=== PATIENT | female | born 1945 | race Caucasian/White ===

== ENCOUNTER 2016-11-13 19:17 | Emergency (ER) | payer OTHER ==
[2016-11-13] MEDS ORDERED: NS 1,000 ML IV ONE (19:25)
--- NOTE | 2016-11-13 19:28 | EDPHY ---
H & P HPI/ROS: HPI CHIEF COMPLAINT: Hypoglycemia HISTORY OF PRESENT ILLNESS: this patient very pleasant 71-year-old female, significant past medical history for insulin-dependent diabetes, she takes 15 units of Lantus in the morning 7 units of Lantus at night and sliding scale during the day. She has neuropathy, hypertension, she presents emergency room after her neighbors heard a loud commotion in her trailer. The make contact with her she seemed confused they called 911. EMS arrived and checked her blood sugar was 34. They gave her D50 and her mental status improved. Upon arrival here in emergency room she is alert or x4, GCS 15 and no complaints. She states that she may of not had enough caloric intake today. She was waiting for her significant other to get home to eat dinner and her blood sugar dropped. Past Medical History: Insulin-dependent diabetes, diabetic neuropathy, hypertension Past Surgical History: no recent surgery Social History: denies any use of drugs alcohol tobacco Family History: noncontributory ROS REVIEW OF SYSTEMS: A comprehensive 10 point review of systems is otherwise negative aside from elements mentioned in the history of present illness. Exam Constitutional appears well nontoxic, GCS 15 triage nursing summary reviewed, vital signs reviewed, awake/alert. Eyes normal conjunctivae and sclera, EOMI, PERRLA. HENT normal inspection, atraumatic, moist mucus membranes, no epistaxis, neck supple/ no meningismus, no raccoon eyes. Respiratory clear to auscultation bilaterally, normal breath sounds, no respiratory distress, no wheezing. Cardiovascular rate normal, regular rhythm, no murmur, no edema, distal pulses normal. Gastrointestinal soft, non-tender, no rebound, no guarding, normal bowel sounds, no distension, no pulsatile mass. Genitourinary no CVA tenderness. Musculoskeletal no midline vertebral tenderness, full range of motion, no calf swelling, no tenderness of extremities, no meningismus, good pulses, neurovascularly intact. Skin pink, warm, & dry, no rash, skin atraumatic. Neurologic awake, alert and oriented x 3, AAOx3, moves all 4 extremities equally, motor intact, sensory intact, CN II-XII intact, normal cerebellar, normal vision, normal speech. Psychiatric normal mood/affect. Heme/Lymph/Immune no lymphadenopathy. Differential Diagnosis: includes but is not limited to in a particular order, electrolyte disturbance, dehydration, insulin overdose, hypoglycemia from taking insulin and not enough caloric intake, infection Medical Decision Making: plan for this patient IV establishment, blood draw, check blood sugar, Q hour blood sugar checks, allow the patient to eat, IV fluid bolus. Closely monitor blood sugar. If she has steady state blood sugars over the next few hours are allow her to go home. No signs of sepsis on exam no signs of fever. Re-evaluation: 2020: Re-evaluation at this time this patient would like to be discharged she tells me she feels fine. She has had serial blood sugars here that it remained stable. Infected went up to 230s. No evidence of infection. This is most likely adverse effect of insulin. She is requesting discharge. She did eat here. Has no complaints. It is noted she is slightly low-sodium. She understands follow-up with primary care doctor about this hyponatremia. Return emergency room if there is any worsening symptoms questions or concerns. Source: Patient - Medical/Surgical History Hx Asthma: No Hx Chronic Respiratory Disease: No Hx Diabetes: Yes Hx Cardiac Disease: Yes Hx Renal Disease: No Hx Cirrhosis: No Hx Alcoholism: No Hx HIV/AIDS: No Hx Splenectomy or Spleen Trauma: No Other PMH: HTN, DM, Cataracts, environmental allergies - Social History Smoking Status: Unknown if ever smoked Constitutional: Initial Vital Signs Temperature (C) 36.4 C 11/13/16 19:32 Heart Rate 78 11/13/16 19:32 Respiratory Rate 18 11/13/16 19:32 Blood Pressure 174/87 H 11/13/16 19:32 O2 Sat (%) 97 11/13/16 19:32 O2 Delivery Mode Room Air Allergies/Adverse Reactions: IV kidney dye Allergy (Uncoded 10/11/13 13:47) NSAIDS Adverse Reaction (Uncoded 11/15/10 11:17) ORAL PAIN MEDICATIONS Adverse Reaction (Uncoded 11/15/10 11:16) Home Medications: Medication Instructions Recorded Aspirin [Aspirin 81mg (*)] 81 mg PO DAILY 10/11/13 Citalopram [CeleXA 20 MG] 20 mg PO DAILY 10/11/13 Insulin Regular, Human [HUMULIN R] 0 unit IJ AD 10/11/13 Levothyroxine [Synthroid 100 mcg 100 mcg PO DAILY06 10/11/13 (*)] Lisinopril [Zestril 40 mg (*)] 40 mg PO DAILY 10/11/13 Losartan Potassium [Cozaar] 100 mg PO DAILY 10/11/13 Simvastatin [Zocor] 5 mg PO DAILY 10/11/13 buPROPion XL [Wellbutrin 150mg XL] 150 mg PO DAILY 10/11/13 hydrALAZINE [Apresoline 10 mg (*)] 40 mg PO TID 10/11/13 medroxyPROGESTERone [Provera 2.5 2.5 mg PO DAILY 10/11/13 mg (*)] Cefpodoxime Proxetil [Vantin] 200 mg PO BID #10 tab 10/15/13 Insulin Glargine [Lantus 100 10 units SC HS #0 ml 10/15/13 UNITS/ML (*)] Insulin Glargine [Lantus 100 12 units SC DAILY #0 ml 10/15/13 UNITS/ML (*)] Medical Decision Making - Data Points Laboratory Results: Laboratory Results 11/13/16 19:22 11/13/16 19:40 11/13/16 11/13/16 11/13/16 20:07 19:40 19:22 WBC RBC Hgb Hct MCV MCH MCHC RDW Plt Count MPV Neut % (Auto) Lymph % (Auto) [place] % (Auto) Eos % (Auto) Baso % (Auto) Nucleat RBC Rel Count Absolute Neuts (auto) Absolute Lymphs (auto) Absolute Monos (auto) Absolute Eos (auto) Absolute Basos (auto) Absolute Nucleated RBC Immature Gran % Immature Gran # Sodium 131 mEq/L L mEq/L 130 mEq/L L mEq/L (134-144) (134-144) Potassium 3.6 mEq/L mEq/L 3.8 mEq/L mEq/L (3.5-5.2) (3.5-5.2) Chloride 96 mEq/L L mEq/L 95 mEq/L L mEq/L (97-110) (97-110) Carbon Dioxide 23 mEq/l mEq/l 21 mEq/l L mEq/l (22-31) (22-31) Anion Gap 12 mEq/L mEq/L 14 mEq/L mEq/L (8-16) (8-16) BUN 12 mg/dL mg/dL 13 mg/dL mg/dL (7-23) (7-23) Creatinine 0.9 mg/dL mg/dL 0.9 mg/dL mg/dL (0.6-1.0) (0.6-1.0) Estimated GFR > 60 > 60 Glucose 101 mg/dL H D mg/dL 41 mg/dL L mg/dL (70-100) (70-100) POC Glucose 236 mg/dL H mg/dL (70-100) Calcium 9.1 mg/dL mg/dL 9.4 mg/dL mg/dL (8.5-10.4) (8.5-10.4) 11/13/16 19:22 WBC 6.00 10^3/uL 10^3/uL (3.80-9.50) RBC 4.28 10^6/uL 10^6/uL (4.18-5.33) Hgb 13.2 g/dL g/dL (12.6-16.3) Hct 38.4 % % (38.0-47.0) MCV 89.7 fL fL (81.5-99.8) MCH 30.8 pg pg (27.9-34.1) MCHC 34.4 g/dL g/dL (32.4-36.7) RDW 13.1 % % (11.5-15.2) Plt Count 266 10^3/uL 10^3/uL (150-400) MPV 8.8 fL fL (8.7-11.7) Neut % (Auto) 79.7 % H % (39.3-74.2) Lymph % (Auto) 13.3 % L % (15.0-45.0) [place] % (Auto) 4.5 % % (4.5-13.0) Eos % (Auto) 1.5 % % (0.6-7.6) Baso % (Auto) 0.7 % % (0.3-1.7) Nucleat RBC Rel Count 0.0 % % (0.0-0.2) Absolute Neuts (auto) 4.78 10^3/uL 10^3/uL (1.70-6.50) Absolute Lymphs (auto) 0.80 10^3/uL L 10^3/uL (1.00-3.00) Absolute Monos (auto) 0.27 10^3/uL L 10^3/uL (0.30-0.80) Absolute Eos (auto) 0.09 10^3/uL 10^3/uL (0.03-0.40) Absolute Basos (auto) 0.04 10^3/uL 10^3/uL (0.02-0.10) Absolute Nucleated RBC 0.00 10^3/uL 10^3/uL (0-0.01) Immature Gran % 0.3 % % (0.0-1.1) Immature Gran # 0.02 10^3/uL 10^3/uL (0.00-0.10) Sodium Potassium Chloride Carbon Dioxide Anion Gap BUN Creatinine Estimated GFR Glucose POC Glucose Calcium Medications Given: Discontinued Medications Sodium Chloride (Ns) 1,000 mls @ 0 mls/hr IV EDNOW ONE; Wide Open PRN Reason: Protocol Stop: 11/13/16 19:26 Last Admin: 11/13/16 19:38 Dose: 1,000 mls Point of Care Test Results: 11/13/16 20:07 POC Glucose 236 H Departure - Departure Disposition: Home, Routine, Self-Care Clinical Impression: Hypoglycemia, Hyponatremia Condition: Good Instructions: Hypoglycemia in a Person with Diabetes (ED), Hyponatremia (ED) Additional Instructions: 1. Your sodium is slightly low here in the emergency room. 130s. 2. Please follow up with her primary care doctor to have her sodium recheck. 3. Return emergency room if you have any worsening symptoms questions or concerns. Referrals: Patient,NotPresent [Primary Care Provider] - As per Instructions
[2016-11-13 19:30] LABS: % IMMATURE GRANULYOCYTES 0.3 % (0.0-1.1); ABSOLUTE IMMATURE GRANULOCYTES 0.02 10^3/uL (0.00-0.10); ADD DIFF? NO; ADD MORPH? NO; ADD SCAN? NO; ATYPICAL LYMPHOCYTE FLAG 20 (0-99); FRAGMENT RBC FLAG 0 (0-99); HEMATOCRIT 38.4 % (38.0-47.0); HEMOGLOBIN 13.2 g/dL (12.6-16.3); LEFT SHIFT FLG 0 (0-99); LIPEMIA HEMOLYSIS FLAG 90 (0-99); MEAN CELL HEMOGLOBIN 30.8 pg (27.9-34.1); MEAN CELL HEMOGLOBIN CONCENTR. 34.4 g/dL (32.4-36.7); MEAN CELL VOLUME 89.7 fL (81.5-99.8); MEAN PLATELET VOLUME 8.8 fL (8.7-11.7); PLATELET CLUMPS FLAG 0 (0-99); PLATELET COUNT 266 10^3/uL (150-400); RED BLOOD CELL COUNT 4.28 10^6/uL (4.18-5.33); RED CELL DISTRIBUTION WIDTH 13.1 % (11.5-15.2)
[2016-11-13 19:35] VITALS: RESP 18; TEMP 97.5; O2SAT 97
[2016-11-13 19:43] LABS: ANION GAP 14 mEq/L (8-16); CALCIUM 9.4 mg/dL (8.5-10.4); CARBON DIOXIDE 21 mEq/l (22-31); CHLORIDE 95 mEq/L (97-110); CREATININE 0.9 mg/dL (0.6-1.0); GLOMERULAR FILTRATION RATE > 60; GLUCOSE 41 mg/dL (70-100); POTASSIUM 3.8 mEq/L (3.5-5.2); SODIUM 130 mEq/L (134-144)
[2016-11-13 20:02] LABS: ANION GAP 12 mEq/L (8-16); CALCIUM 9.1 mg/dL (8.5-10.4); CARBON DIOXIDE 23 mEq/l (22-31); CHLORIDE 96 mEq/L (97-110); CREATININE 0.9 mg/dL (0.6-1.0); GLOMERULAR FILTRATION RATE > 60; GLUCOSE 101 mg/dL (70-100); POTASSIUM 3.6 mEq/L (3.5-5.2); SODIUM 131 mEq/L (134-144)
[2016-11-13 20:34] VITALS: BP 169/85; PULSE 80
== END 2016-11-13 20:34 | disposition home or self-care (01) ==
LOC: EDUNIT#
DX: E11.649 Type 2 diabetes mellitus with hypoglycemia without coma (principal); E87.1 Hypo-osmolality and hyponatremia; I10 Essential (primary) hypertension; E86.9 Volume depletion, unspecified; Z79.4 Long term (current) use of insulin; Z79.82 Long term (current) use of aspirin

== ENCOUNTER 2018-07-02 13:55 | Inpatient (IN) | payer OTHER ==
[2018-07-02] MEDS ORDERED: CALCIUM CHLORIDE 1 GM/10 ML INJ ONE (14:07)
[2018-07-02] MEDS ORDERED: NS 1,000 ML IV ONE ×3 (14:07→16:56)
[2018-07-02] MEDS ORDERED: CALCIUM GLUC 10% 1 GM/10 ML VIAL ONE (14:07)
[2018-07-02] MEDS ORDERED: ALBUTEROL 3 ML DEYVIAL IH ONE (14:08)
[2018-07-02] MEDS ORDERED: SODIUM BICARBONATE 150 MEQ in D5W 1,000 ML IV ONE (14:08)
[2018-07-02] MEDS ORDERED: CALCIUM GLUC 10% 1 GM/10 ML VIAL IVP ONE (14:08)
[2018-07-02] MEDS ORDERED: INSULIN REGULAR HUMAN 100 UNIT, COSIGN. REQUIRED 1 EA in NS 100 ML IV ONE (14:09)
[2018-07-02] MEDS ORDERED: ALBUTEROL INH PREPACK MDI TAKEHOME ONE (14:16)
[2018-07-02 14:17] LABS: PLATELET COUNT 247 10^3/uL (150-400)
[2018-07-02] MEDS ORDERED: ALBUTEROL 60 PUFFS/8 GM MDI IH ONE (14:20)
--- NOTE | 2018-07-02 14:20 | EDPHY ---
H & P Time Seen by Provider: 07/02/18 14:07 HPI/ROS: CHIEF COMPLAINT: Unresponsive Limitations: Unresponsiveness, patient unable to give any clinical history and no family or friends present. History is through EMS. HISTORY OF PRESENT ILLNESS: 72-year-old female with IDDM presents with unresponsiveness. Last evening, a friend called the patient and she was apparently confused. He called her again and there was no answered, so he called 911. On EMS arrival, she was unresponsive. No signs of trauma. Unable to obtain a blood sugar, so 1 amp D50 given. She remained unresponsive after D50. REVIEW OF SYSTEMS: Unable to determine - Medical/Surgical History Hx Asthma: No Hx Chronic Respiratory Disease: No Hx Diabetes: Yes Hx Cardiac Disease: Yes Hx Renal Disease: No Hx Cirrhosis: No Hx Alcoholism: No Hx HIV/AIDS: No Hx Splenectomy or Spleen Trauma: No Other PMH: HTN, DM, Cataracts, environmental allergies - Social History Smoking Status: Unknown if ever smoked Additional Social History: Lives alone in own home - Physical Exam Exam: General Appearance: Unresponsive to painful stimuli, pale Eyes: Pupils equal and round, 3 mm, no response to light ENT, Mouth: Mucous membranes dry, no gag reflex Neck: Normal inspection Respiratory: Lungs are clear to auscultation anteriorly Cardiovascular: Regular rate and rhythm Gastrointestinal: Abdomen is soft Neurological: Flaccid, unresponsive to painful stimuli Skin: Warm and dry, pale Extremities: Normal inspection Psychiatric: Unable to determine Constitutional: Initial Vital Signs Heart Rate 64 07/02/18 14:05 Respiratory Rate 27 H 07/02/18 14:05 Blood Pressure 73/37 L 07/02/18 14:05 O2 Sat (%) 95 07/02/18 14:05 O2 Delivery Mode Non-Rebreather Mask O2 (L/minute) 15 Allergies/Adverse Reactions: IV kidney dye Allergy (Uncoded 10/11/13 13:47) NSAIDS Adverse Reaction (Uncoded 11/15/10 11:17) ORAL PAIN MEDICATIONS Adverse Reaction (Uncoded 11/15/10 11:16) Home Medications: Medication Instructions Recorded Insulin Regular, Human [HUMULIN R] 0 - 15 unit SC AD 10/11/13 Levothyroxine [Synthroid 100 mcg 100 mcg PO DAILY 10/11/13 (*)] Losartan Potassium [Cozaar] 100 mg PO DAILY 06/18/14 buPROPion XL [Wellbutrin 150mg XL] 150 mg PO DAILY 10/11/13 hydrALAZINE [Apresoline 10 mg (*)] 30 mg PO TID 10/11/13 Atorvastatin Calcium [Lipitor 10 10 mg PO DAILY 07/02/18 mg (*)] Insulin Glargine [Lantus 100 0 - 25 units SC DAILY 07/02/18 UNITS/ML] amLODIPine BESYLATE [Norvasc 5 mg 5 mg PO DAILY 07/02/18 (*)] Medical Decision Making - Diagnostics EKG Interpretation: EKG interpreted by me reveals junctional rhythm, rate 64, right bundle branch block, peak T-waves. Imaging Results: Imaging Impressions Chest X-Ray 07/02/18 14:03 Impression: 1. Good position of ET tube 2. Right basilar consolidation. Head CT 07/02/18 14:10 Impression: 1. No acute intracranial hemorrhage. 2. Moderate chronic microvascular ischemic disease and age-related atrophy. With high clinical concern for acute ischemia, MRI of the brain is recommended. Cheryl Rodriguez was notified of these findings by telephone at 6:59 PM on 07/02/2018. Imaging: Discussed imaging studies w/ call specialist Radiologist Procedures: Procedure: RSI Intubation Indication for the procedure was respiratory failure. The patient was preoxygenated with 100% oxygen by face mask. No sedation required. The patient was orally endotracheally intubated under direct glidescope visualization with a 7.5 ETT. Tracheal intubation was confirmed with misting on the tube; equal breath sounds bilaterally immediately after intubation; appropriate color change with [place] CO2 detector; and appropriate capnography waveform. Oxygen saturation after intubation is 96% . Chest X- ray shows ETT in good position. The procedure was performed by myself. Procedure: Central line placement. Indication: DKA, respiratory failure. Risks, benefits, alternatives discussed with the patient including but not limited to bleeding, infection, vascular injury, and collapsed lung and consent obtained. A timeout was observed. Full maximal sterile barrier technique was used including cap, gown, sterile gloves, large sheet, hand washing and chlorhexidine prep. The area was anesthetized with 1% lidocaine. A 7 [place] triple lumen was placed in the right, left subclavian vein using standard Seldinger technique. There were no complications. Blood return low pressure, dark blood. Patient tolerated procedure well. CXR results: Appropriate line placement, and no pneumothorax. X-ray was interpreted by myself. Radiologist interpretation is pending. The procedure was performed by myself. ED Course/Re-evaluation: This patient presents with unresponsiveness and hypotension. 2 IVs were established on arrival. Blood sugar was greater than 600. She was orally intubated by me without complications. Chest x-ray after intubation reveals that the ET tube is a little high and it was lower by RT. EKG reveals a junctional rhythm and peaked T-waves. I-STAT reveals hyperkalemia and hyperglycemia. Calcium gluconate 1 amp IV given, followed by a bicarb and insulin drip for acute hyperkalemia and DKA. IV fluids 2 L infusing wide open. Albuterol given by via the ET tube. 1430: BP 82/38, IV fluid infusing. The hospitalist service was consulted for admission. 1515: Consulted Dr. Chance for hyperkalemia and acute renal failure. Will see the patient in the ED. Central line placement by me for ongoing fluid and medication management. Serial i-STAT's reveal gradual reduction in potassium to 6.6, glucose remains quite elevated. I spent a total of 50 minutes of critical care time in obtaining history, performing a physical exam, bedside monitoring of interventions, collecting and interpreting tests and discussion with consultants but not including time spent performing procedures. Differential Diagnosis: Altered mental status including but not limited to hypoglycemia, infectious process, electrolyte abnormality, head injury, CVA, and intoxicants. - Data Points Laboratory Results: Laboratory Results 07/02/18 14:07 07/02/18 14:07 07/02/18 07/02/18 07/02/18 14:07 14:07 14:05 WBC 13.19 10^3/uL H 10^3/uL (3.80-9.50) RBC 3.29 10^6/uL L 10^6/uL (4.18-5.33) Hgb 10.2 g/dL L g/dL (12.6-16.3) POC Hgb 12.2 gm/dL L gm/dL (12.6-16.3) Hct 37.2 % L % (38.0-47.0) POC Hct 36 % L % (38-47) MCV 113.1 fL H fL (81.5-99.8) MCH 31.0 pg pg (27.9-34.1) MCHC 27.4 g/dL L g/dL (32.4-36.7) RDW 15.7 % H % (11.5-15.2) Plt Count 247 10^3/uL 10^3/uL (150-400) MPV 9.9 fL fL (8.7-11.7) Neut % (Auto) 80.2 % H % (39.3-74.2) Lymph % (Auto) 12.7 % L % (15.0-45.0) [place] % (Auto) 4.9 % % (4.5-13.0) Eos % (Auto) 0.1 % L % (0.6-7.6) Baso % (Auto) 0.2 % L % (0.3-1.7) Nucleat RBC Rel Count 0.0 % % (0.0-0.2) Absolute Neuts (auto) 10.59 10^3/uL H 10^3/uL (1.70-6.50) Absolute Lymphs (auto) 1.67 10^3/uL 10^3/uL (1.00-3.00) Absolute Monos (auto) 0.64 10^3/uL 10^3/uL (0.30-0.80) Absolute Eos (auto) 0.01 10^3/uL L 10^3/uL (0.03-0.40) Absolute Basos (auto) 0.03 10^3/uL 10^3/uL (0.02-0.10) Absolute Nucleated RBC 0.00 10^3/uL 10^3/uL (0-0.01) Immature Gran % 1.9 % H % (0.0-1.1) Immature Gran # 0.25 10^3/uL H 10^3/uL (0.00-0.10) Platelet Estimate ADEQUATE (ADEQ) Oval Macrocytes 1+ H Echinocytes 1+ H Acanthocytes (Spur) 1+ H POC Sodium 122 mEq/L L mEq/L (135-145) Sodium 123 mEq/L L mEq/L (135-145) POC Potassium 8.0 mEq/L H* mEq/L (3.3-5.0) Potassium 8.6 mEq/L H* mEq/L (3.5-5.2) POC Chloride 94 mEq/L L mEq/L (97-110) Chloride 89 mEq/L L mEq/L (97-110) Carbon Dioxide 5 mEq/l L* mEq/l (22-31) POC Total CO2 8 mEq/L L* mEq/L (22-31) Anion Gap 29 mEq/L H mEq/L (6-14) POC BUN 50 mg/dL H mg/dL (7-23) BUN 49 mg/dL H mg/dL (7-23) Creatinine 4.1 mg/dL H mg/dL (0.6-1.0) POC Creatinine 4.1 mg/dL H mg/dL (0.6-1.0) Estimated GFR 11 Glucose 1350 mg/dL H* mg/dL (70-100) POC Glucose > 700 mg/dL H* mg/dL (70-100) Calcium 8.3 mg/dL L mg/dL (8.5-10.4) Phosphorus 12.6 mg/dL H mg/dL (2.5-4.5) Magnesium 2.7 mg/dL H mg/dL (1.6-2.3) Total Bilirubin 0.7 mg/dL mg/dL (0.1-1.4) Conjugated Bilirubin 0.7 mg/dL H mg/dL (0.0-0.5) Unconjugated Bilirubin 0.0 mg/dL mg/dL (0.0-1.1) AST 55 IU/L H IU/L (14-46) ALT 51 IU/L IU/L (9-52) Alkaline Phosphatase 87 IU/L IU/L (38-126) Total Protein 5.6 g/dL L g/dL (6.3-8.2) Albumin 3.5 g/dL g/dL (3.5-5.0) Beta-Hydroxybutyrate 11.00 mmol/L H mmol/L (0.02-0.27) Specimen Hemolysis 105 07/02/18 14:00 WBC RBC Hgb POC Hgb Hct POC Hct MCV MCH MCHC RDW Plt Count MPV Neut % (Auto) Lymph % (Auto) [place] % (Auto) Eos % (Auto) Baso % (Auto) Nucleat RBC Rel Count Absolute Neuts (auto) Absolute Lymphs (auto) Absolute Monos (auto) Absolute Eos (auto) Absolute Basos (auto) Absolute Nucleated RBC Immature Gran % Immature Gran # Platelet Estimate Oval Macrocytes Echinocytes Acanthocytes (Spur) POC Sodium Sodium POC Potassium Potassium POC Chloride Chloride Carbon Dioxide POC Total CO2 Anion Gap POC BUN BUN Creatinine POC Creatinine Estimated GFR Glucose POC Glucose > 600 mg/dL H* mg/dL (70-100) Calcium Phosphorus Magnesium Total Bilirubin Conjugated Bilirubin Unconjugated Bilirubin AST ALT Alkaline Phosphatase Total Protein Albumin Beta-Hydroxybutyrate Specimen Hemolysis Medications Given: Chlorhexidine Gluconate (Peridex) 15 ml PO Q12@08,20 WILFRED Stop: 12/29/18 19:59 Last Admin: 07/02/18 21:11 Dose: 15 ml Famotidine/Sodium Chloride (Pepcid 20 Mg (Premix)) 50 mls @ 200 mls/hr IV Q12HRS WILFRED Stop: 12/29/18 20:59 Last Admin: 07/02/18 21:11 Dose: 50 mls Propofol (Diprivan 10 Mg/Ml (Premix)) 100 mls @ 0 mls/hr IV CONT WILFRED; Per Protocol PRN Reason: Protocol Stop: 12/29/18 18:29 Last Admin: 07/02/18 18:38 Dose: 100 mls Discontinued Medications Albuterol (Proventil Neb) 12 ml IH EDNOW ONE Stop: 07/02/18 14:09 Last Admin: 07/02/18 14:20 Dose: Not Given Albuterol (Proventil Inhaler) 4 puffs IH EDNOW ONE Stop: 07/02/18 14:21 Last Admin: 07/02/18 14:21 Dose: 4 puffs Calcium Gluconate (Calcium Gluconate) 1 gm IVP EDNOW ONE Stop: 07/02/18 14:09 Last Admin: 07/02/18 14:10 Dose: 1 gm Sodium Chloride (Ns) 1,000 mls @ 0 mls/hr IV EDNOW ONE; Wide Open PRN Reason: Protocol Stop: 07/02/18 14:08 Last Admin: 07/02/18 14:14 Dose: 1,000 mls Sodium Bicarbonate 150 meq/ (Dextrose) 1,150 mls @ 0 mls/hr IV EDNOW ONE PRN Reason: As Directed Stop: 07/02/18 14:09 Last Admin: 07/02/18 14:51 Dose: 1,150 mls Insulin Human Regular 100 unit / Miscellaneous Medication 1 ea/ Sodium Chloride 101 mls @ 0 mls/hr IV EDNOW ONE; Per Protocol PRN Reason: Protocol Stop: 07/02/18 14:10 Last Admin: 07/02/18 15:09 Dose: 101 mls Azithromycin 500 mg/ Sodium (Chloride) 255 mls @ 255 mls/hr IV EDNOW ONE PRN Reason: Protocol Stop: 07/02/18 16:22 Last Admin: 07/02/18 18:42 Dose: Not Given Ceftriaxone Sodium/Dextrose (Rocephin 1 Gm (Premix)) 50 mls @ 100 mls/hr IV EDNOW ONE PRN Reason: Protocol Stop: 07/02/18 15:52 Last Admin: 07/02/18 16:33 Dose: 50 mls Sodium Bicarbonate 150 meq/ (Sterile Water) 1,150 mls @ 0 mls/hr IV EDNOW ONE PRN Reason: As Directed Stop: 07/02/18 16:01 Last Admin: 07/02/18 18:40 Dose: 1,150 mls Sodium Chloride (Ns) 1,000 mls @ 0 mls/hr IV ONCE ONE PRN Reason: Wide Open Stop: 07/02/18 16:09 Last Admin: 07/02/18 16:10 Dose: 1,000 mls Sodium Chloride (Ns) 1,000 mls @ 0 mls/hr IV ONCE ONE PRN Reason: Wide Open Stop: 07/02/18 16:57 Last Admin: 07/02/18 16:56 Dose: 1,000 mls Potassium Chloride (Potassium Cl 10 Meq (Premix)) 50 mls @ 100 mls/hr IV Q30M WILFRED Stop: 07/02/18 22:14 Last Admin: 07/02/18 22:24 Dose: 50 mls Insulin Human Regular (Humulin R) 10 unit IVP ONCE ONE Stop: 07/02/18 15:35 Last Admin: 07/02/18 15:58 Dose: 10 units Midazolam HCl (Versed) 2 mg IVP ONCE ONE Stop: 07/02/18 16:29 Last Admin: 07/02/18 16:29 Dose: 2 mg Point of Care Test Results: Chemistry 07/02/18 07/02/18 14:05 14:00 POC Sodium 122 mEq/L L mEq/L (135-145) POC Potassium 8.0 mEq/L H* mEq/L (3.3-5.0) POC Chloride 94 mEq/L L mEq/L (97-110) POC Total CO2 8 mEq/L L* mEq/L (22-31) POC BUN 50 mg/dL H mg/dL (7-23) POC Creatinine 4.1 mg/dL H mg/dL (0.6-1.0) POC Glucose > 700 mg/dL H* mg/dL > 600 mg/dL H* mg/dL (70-100) (70-100) ISTAT H&H 07/02/18 14:05 POC Hgb 12.2 gm/dL L gm/dL (12.6-16.3) POC Hct 36 % L % (38-47) Departure - Departure Disposition: [facility] Inpatient Acute Clinical Impression: DKA, type 1 Qualifiers: Diabetes mellitus complication detail: with coma Qualified Code(s): E10.11 - Type 1 diabetes mellitus with ketoacidosis with coma Respiratory failure Qualifiers: Chronicity: acute Respiratory failure complication: hypoxia Qualified Code(s): J96.01 - Acute respiratory failure with hypoxia Condition: Critical
[2018-07-02] MEDS ORDERED: AZITHROMYCIN IV 500 MG in NS 250 ML IV ONE (15:23)
[2018-07-02] MEDS ORDERED: INSULIN REGULAR HUMAN 100 UNIT/ML UNIT IVP ONE (15:34)
--- NOTE | 2018-07-02 15:41 | ASMTCMCOM ---
CM Note CM Note Notes: Pt was brought in by EMS after being found unresponsive by her life partner, Rajan. CM called Rajan who was on his way to the hospital. He was informed of the pt's critical status (per Dr. Rodriguez).Rajan reported that he had text communication with the pt. the prior evening but became concerned when she did not respond to his text this morning. He went to her home and found her unresponsive and called 911. Upon arriving to the hospital Rajan questioned the pt's status saying "are you sure it is critical, the same exact thing has happened in the past". A neighbor was present in the room and repeatedly said she was "fine" it was just like last time. Dr. Rodriguez explained that the pt. was very ill and not breathing on her own. Rajan was recently in the hospital and has an ambulatory oxygen tank.He indicated he has had some health issues as well. Depending on pt. status pt. friends/family may benefit from some psychoeducation and additional support. DC needs MARCE RANGEL to continue to follow. Date Signed: 07/02/2018 03:40 PM Electronically Signed By:Xiao Roth LCSW
[2018-07-02] MEDS ORDERED: ONDANSETRON DISINTEGRATING 4 MG TAB PO PRN (15:46)
[2018-07-02] MEDS ORDERED: ONDANSETRON 4 MG/2 ML VIAL IVP PRN (15:46)
[2018-07-02] MEDS ORDERED: SODIUM BICARBONATE 150 MEQ in WATER FOR INJECTION,STERILE 1,000 ML IV ONE (16:00)
[2018-07-02] MEDS ORDERED: MIDAZOLAM 2 MG/2 ML VIAL ONE (16:24)
[2018-07-02] MEDS ORDERED: MIDAZOLAM 2 MG/2 ML VIAL IVP ONE (16:28)
--- NOTE | 2018-07-02 16:33 | GHP ---
[f rep st] HISTORY AND PHYSICAL DATE OF ADMISSION: 07/02/2018 CHIEF COMPLAINT: Nonresponsive, found down. HISTORY OF PRESENT ILLNESS: This is a 72-year-old female with type 1 diabetes, who was found nonresponsive by her friend. Another friend had gotten a text from her last night, which was normal, indicating there were no problems. The same friend also got another text at 6:50 this morning, also indicating that she was doing okay. Her second friend texted her around 10 o'clock, got no answer. Because of this, he went over to check on her and found her nonresponsive. He thus called EMS. EMS attempted to check a blood sugar; however, it was not reading, so they gave her an amp of D50. This did not help her mental status. In the emergency department, she was found to be in severe DKA with critical hyperkalemia and acidosis. Her friends tell me that she has been in DKA about 4 times. Every time she has gone into a coma because of this. They believe that her insulin may have , which they report was the issue the last time she was in DKA. She was intubated in the emergency department due to her severe obtundation. She received emergent treatment for hyperkalemia, including calcium, insulin, bicarb, and albuterol via her tube. PAST MEDICAL/SURGICAL HISTORY: 1. Type 1 diabetes with nephropathy. 2. Chronic kidney disease. I am unclear what her baseline is, though she does have recent creatinines of around 0.8. 3. Hypertension. 4. Questionable CVA, though she has no reported residual deficits. MEDICATIONS: Please see medication reconciliation. ALLERGIES: IV dye, NSAIDs, oral pain medicines. SOCIAL HISTORY: She lives by herself. She is accompanied by 2 friends. FAMILY HISTORY: Unobtainable. REVIEW OF SYSTEMS: Unobtainable, given her present state. PHYSICAL EXAM: VITAL SIGNS: Initial blood pressure was 63/34, now it is 94/ 38. Heart rate was initially in the 70s. Respiration rate 14. She is currently on a ventilator. Her temperature is 34.8. GENERAL: The patient is a female who is lying in bed, intubated, nonresponsive. HEENT: Shows her pupils to be fixed at about 3 mm. They are nonresponsive to light. CARDIOVASCULAR: Exam shows her to be irregularly irregular. She has some premature beats. She has a 2/6 systolic murmur. PULMONARY: Exam shows her to have coarse breath sounds bilaterally. I auscultated her from the anterior aspect. ABDOMEN: Exam shows her to be soft. She tries to move my hand with deep palpation. She does have bowel sounds. SKIN: Exam shows no rash. : Exam shows a Guillermo catheter in place. NEUROLOGIC: Exam shows her to be nonresponsive. She does seem to be moving all extremities with some mild purpose at this point. PSYCHIATRIC: Exam is unobtainable. LABS: Sodium 123, potassium 8.6, chloride 89, bicarb 5, BUN 49, creatinine of 4.1, initial glucose is 1350. White count is 13.19, hemoglobin is 10.2, MCV is 113. ABG shows a pH of 6.95, her pCO2 is 22, pO2 is 392. Urinalysis shows 3+ glucose, there is 2+ blood, trace ketones and 2+ protein. DATA: 1. Discussed with Dr. Rodriguez. I will admit to the ICU. 2. I personally viewed and interpreted her chest x-ray. This shows an ET tube in place. She is rotated to the side. There is a right basilar infiltrate. 3. I personally viewed and interpreted her EKG. This shows an accelerated junctional rhythm. She has a widened QRS. She has peaked T waves. IMPRESSION AND PLAN: 1. Diabetic ketoacidosis: She presents in marked diabetic ketoacidosis. I placed her on protocol. She will get intravenous insulin, following her potassium very closely. She will get significant fluid. She has already gotten 2 L. She will need more fluid than this. 2. Critical metabolic acidosis: She is currently on a bicarbonate drip because of this. We will follow this closely with treatment of her diabetic ketoacidosis. 3. Critical hyperkalemia: Nephrology has been consulted. She has gotten appropriate emergent treatment, including insulin, bicarbonate, albuterol, calcium. I do suspect that this will improve when her acidosis improves. We will follow this very closely. Renal is involved in case she needs dialysis. 4. Acute on chronic renal failure: Creatinine is 4.1. Her baseline is around 1. She has only made 50 cc of urine. This is very concerning in the setting of critical hyperkalemia. As above, Dr. Chance has been consulted. 5. Acute encephalopathy/obtundation: She is really not responsive right now. This may be metabolic, although given her hypotension, she may have had a central event. Regardless, supportive care is appropriate at this point treating all of the above. Will follow her mental status very closely as her metabolic panels return to normal. Consider involving Neurology if she does not improve. 6. Acute hypoxic respiratory failure: She was reportedly barely breathing when she presented and was not protecting her airway. She is currently intubated. Will check another ABG soon to follow her ventilation. 7. R basilar consolidation: suspect pneumonia. Will treat for CAP with Rocephin and Azithromycin. Blood cultures were drawn. 8. Hypotension: this has improved with IV fluids. She has a central line. BILLING: I spent a total of 55 minutes of floor and bedside critical care time managing respiratory failure requiring intubation, critical hyperkalemia, and critical acidosis. /[id number]/MODL MTDD
[2018-07-02] MEDS ORDERED: PROTOCOL POTASSIUM 1 DOSE MISC PRN (17:20)
[2018-07-02] MEDS ORDERED: PROPOFOL/EMULSION 1,000 MG/100 ML BOTTLE IV ONE (18:16)
[2018-07-02] MEDS: PROPOFOL/EMULSION 100 ML IV SCH (18:38)
[2018-07-02] MEDS ORDERED: FAMOTIDINE 20 MG/NACL 50 ML IV SCH (21:00)
[2018-07-02] MEDS: CHLORHEXIDINE GLUCONATE 15 ML UDL PO SCH (21:11)
[2018-07-02] MEDS: POTASSIUM Cl (KCl) 50 ML IV SCH ×3 (21:11→22:24)
--- NOTE | 2018-07-02 21:41 | CPEKG ---
Test Reason : OPEN Blood Pressure : / mmHG Vent. Rate : 080 BPM Atrial Rate : 000 BPM P-R Int : 182 ms QRS Dur : 133 ms QT Int : 421 ms P-R-T Axes : 000 -87 081 degrees QTc Int : 486 ms Accelerated junctional rhythm RBBB and LAFB peaked T waves Confirmed by Verna Rodriguez ([id number]) on 07/02/2018 9:40:56 PM Referred By: Verna Rodriguez Confirmed By:Verna Rodriguez
[2018-07-03] MEDS ORDERED: INSULIN REGULAR HUMAN 100 UNIT in NS 100 ML IV SCH (01:00)
[2018-07-03] MEDS ORDERED: POTASSIUM Cl (KCl) 50 ML IV ONE ×3 (03:17→14:01)
--- NOTE | 2018-07-03 04:19 | GCON ---
[f rep st] CONSULTATION NEPHROLOGY CONSULTATION DATE OF CONSULTATION: 07/02/2018 REASON FOR THE CONSULTATION: Hyperkalemia. HISTORY OF PRESENT ILLNESS: I have been asked to evaluate the patient regarding her hyperkalemia. She is a 72-year-old woman with a history of longstanding type 1 diabetes, who was found unresponsive in her home today by her friends. She was brought in by EMS and had a systolic blood pressure in the 60s and was unresponsive. She was intubated for airway protection. Labs demonstrated florid diabetic ketoacidosis, with a serum bicarbonate of 5, serum glucose of 1350, and a serum potassium of 8.6. Her creatinine is 4.1, her baseline was 0.8 in 2017. Arterial pH is 6.95. She has been started on an insulin drip and IV fluids, including sodium bicarbonate. I believe she also received IV calcium. Her blood pressure has actually improved, but continues to run slightly low. She has made very little urine. I have been asked to evaluate her for consideration of dialysis for treatment of her hyperkalemia. Repeat labs are pending; however, a repeat [id number] lab panel documented a potassium of 7.4 one hour after her initial labs. Her glucose was still greater than 700 on that evaluation. Of note, she had a very similar admission in 2013, at which time she presented with a potassium in the 7's, a creatinine of 3.4, and a CO2 of 5. The renal service was not involved with that hospitalization, and her potassium normalized within a few hours with IV insulin and fluids. PAST MEDICAL HISTORY: 1. Longstanding type 1 diabetes mellitus. 2. History of DKA. 3. Hypertension. 4. Hypothyroidism. 5. Depression. 6. Possible history of prior stroke. PAST SURGICAL HISTORY: Unknown. ALLERGIES: NSAIDs and contrast dye. OUTPATIENT MEDICATIONS: Unknown at present. In the past, she has been on Synthroid, insulin, Celexa, aspirin, lisinopril, losartan, simvastatin, Wellbutrin, hydralazine, Provera. SOCIAL HISTORY: She has been living independently. Reportedly she was a previous smoker, but quit years ago. FAMILY HISTORY: Unobtainable at present. REVIEW OF SYSTEMS: Reportedly was confused yesterday evening when her friend spoke with her on the phone. Further review of systems is currently unobtainable. PHYSICAL EXAM: GENERAL: She is frail in appearance, intubated, but responds to stimulation. VITAL SIGNS: Blood pressure is 103/50, heart rate is in the 70s. HEENT: Sclerae are anicteric. Oral mucosa is quite dry. Oropharynx is obscured by an endotracheal tube. NECK: Supple without JVD or lymphadenopathy. There are no carotid bruits. HEART: Regular rate and rhythm. I do not appreciate murmurs, gallops, or rubs. LUNGS: Clear to auscultation anteriorly and laterally. ABDOMEN: Soft. Bowel sounds are hypoactive. I do not appreciate hepatosplenomegaly, masses, or bruits. She does bat at me when I palpate her abdomen, but it is unclear if this is actual tenderness. There is no rebound tenderness. EXTREMITIES: There is no lower extremity edema. Her feet are warm and appear well perfused. SKIN: There is extremely poor skin turgor. There are no skin rashes. NEURO: She is sedated and is unresponsive on presentation. : A Guillermo catheter is in place draining scant quantities of dark yellow urine. LABORATORY DATA: Labs at 2 o'clock this afternoon: Sodium 123, potassium 8.6, chloride 89, CO2 5, BUN 49, creatinine 4.1, glucose 1350, calcium 8.3, phosphorus 12.6, magnesium 2.7. Albumin 3.5, ALT 51, AST 55, total bilirubin 0.7. Beta hydroxybutyrate was 11. This sample was noted to be slightly hemolyzed by the lab. Ionized calcium was 1.2. White blood cell count was 13.2 , hemoglobin 10.2, platelets 247. Blood gas showed an arterial pH of 6.95, total CO2 of 5, PO2 392, pCO2 22. Urine is positive for trace ketones, 2+ protein, 2+ blood, and 3+ glucose, with a negative urine sediment. IMPRESSION AND PLAN: 1. Hyperkalemia: I suspect this is largely being driven by her hyperglycemia and acidosis. Her overall presentation is very similar to her presentation 5 years ago, at which time she improved dramatically within a few hours with IV fluids and insulin. She has been started on an insulin drip and is receiving IV fluids in the form of D5W with 3 amps of sodium bicarbonate. Repeat chemistries have just been sent. I would await these results prior to making any decisions regarding possible dialysis. It is notable that a [id number] test performed 1 hour after her initial labs documented a significant improvement in her potassium, though it was still quite high. If it appears that her hyperkalemia is not responding rapidly to IV insulin, then she could require urgent dialysis later this evening; however, at this point correction with insulin would probably occur more rapidly than dialysis. She will require very close monitoring for the next few hours to determine if this is going to be successful. 2. Acute renal failure: This is almost certainly secondary to volume depletion , though given the profound nature of her presentation, she certainly may have transitioned to ischemic acute tubular necrosis. A Guillermo catheter is in place, therefore, I will hold off on any imaging studies. I will defer additional evaluation for now, unless she fails to improve. 3. Metabolic acidosis: This is diabetic ketoacidosis, and she has been initiated on appropriate therapy. As noted above, this appears very similar to her presentation 5 years ago. 4. Hypotension: She appears extremely dry and is being appropriately volume resuscitated. 5. Mental status changes: It is unclear if this is a primary or secondary event, though it is notable that she was also brought in unresponsive at the time of her admission 5 years ago. Imaging of her head is planned. Thank you for the consultation. We will follow with you. /[id number]/MODL MTDD
[2018-07-03] MEDS ORDERED: RN:ENTER POTASSIUM ICU PROTOCOL ON WORKLIST MISC ONE (06:30)
[2018-07-03] MEDS ORDERED: D50W 25 GM/50 ML SYR IVP PRN ×3 (06:30→17:23)
[2018-07-03] MEDS ORDERED: D10W 1,000 ML IV SCH (06:30)
[2018-07-03] MEDS ORDERED: NS 1,000 ML IV SCH ×2 (06:30→13:15)
[2018-07-03] MEDS: PROPOFOL/EMULSION 100 ML IV SCH (08:23)
[2018-07-03] MEDS: AZITHROMYCIN IV 500 MG in NS 250 ML IV SCH (08:58)
[2018-07-03] MEDS ORDERED: ENOXAPARIN 40 MG/0.4 ML SYR SC SCH (09:00)
--- NOTE | 2018-07-03 10:32 | PDMN ---
Medical Necessity Medical necessity: [facility] M130 Diabetes A-2 days: 72 yo found unresponsive in DKA w / critical metabolic acidosis and critical hyperkalemia (BG 1350, pH 6.95, K8.6 , AG 29, creat 3.7, beta hydroxyl 11). Pt remains unresponsive requiring mechanical ventilation for resp failure. IP status ICU
[2018-07-03] MEDS: CHLORHEXIDINE GLUCONATE 15 ML UDL PO SCH ×2 (11:03→20:52)
[2018-07-03] MEDS: ALBUTEROL 60 PUFFS/8 GM MDI IH SCH ×4 (11:53→23:40)
--- NOTE | 2018-07-03 12:48 | SOAPPROG ---
SOAP Progress Note Assessment/Plan: Assessment: 1. HyperK: due to cellular shifting from hyperglycemia/acidosis, rapidly resolved with insulin. 2. Met acidosis: DKA, much improved and gap closed. 3. arf: vol deplete/hypotensive on presentation, not much uo and presumably has developed ischemic atn. CT neg for obstruction. No indication for hd, will cont to follow conservatively for now. Would decrease ivf if hemodynamics, etc allow to avoid progressive overload. Will hold off on extensive additional eval at this time. 4. Hyperphos: has likely improved similar to K, will repeat. 5. Hypotension: essentially resolved with vol resuscitation, though bp remains a bit soft. Plan: 07/03/18 12:44 Subjective: Remains intubated but hemodynamically stable. Still on insulin gtt. Objective: Vital Signs Temp Pulse Resp BP Pulse Ox 36.6 C 88 20 102/40 L 99 07/03/18 12:00 07/03/18 12:00 07/03/18 12:00 07/03/18 12:00 07/03/18 12:00 07/02/18 07/03/18 07/04/18 04:59 05:59 05:59 Intake Total 32 Output Total 70 Balance -38 Physical Exam - Physical Exam General Appearance: other (intubated) Respiratory: lungs clear (anteriorly) Cardiac/Chest: regular rate, rhythm Abdomen: soft, other (quiet) Extremities: other (no LE/dependent edema) ICD10 Worksheet Patient Problems: Problems Problem Status Onset DKA, type 1 Acute Respiratory failure Acute
--- NOTE | 2018-07-03 13:24 | HOSPPROG ---
Hospitalist Progress Note Assessment/Plan: #DKA, resolving #Metabolic, acidosis, PH and Bicarb better #Hyperkalemia, resolved #DM-I #Acute Encephalopathy, metabolic #Aspiration vs CAP, right sided, right basilar consolidation #Hypotension #Acute Respiratory Failure #TOÑO, low urine output Plan: transition to long acting insulin, ISS. Cont check glucose cont with IVF, decreasing overall rate (was over 300ml/hr) to avoid volume overload Nephrology following, no current indication for HD. Hopefully urine output will increase Add Flagyl for Aspiration coverage Vent mgmt per pulm Studies: Abd A/P: negative CXR: Right Basilar consolidation Access: Right internal jugular DVT proph: Heparin (changed from Lovenox) total critical care time is 35 mins, d/w ICU team Subjective: vented. not very much urine output. bp still soft Objective: Vital Signs Temp Pulse Resp BP Pulse Ox 36.6 C 88 20 102/40 L 99 07/03/18 12:00 07/03/18 12:00 07/03/18 12:00 07/03/18 12:00 07/03/18 12:00 Laboratory Results 07/03/18 12:15 07/02/18 07/03/18 07/04/18 04:59 05:59 05:59 Intake Total 32 Output Total 70 Balance -38 - Physical Exam Constitutional: no apparent distress Eyes: PERRL Ears, Nose, Mouth, Throat: moist mucous membranes Cardiovascular: regular rate and rhythym, No edema Respiratory: no respiratory distress, no rales or rhonchi, clear to auscultation Gastrointestinal: normoactive bowel sounds Skin: warm Neurologic: No AAOx3 Lymph, Heme, Immunologic: No petechiae ICD10 Worksheet Patient Problems: Problems Problem Status Onset DKA, type 1 Acute Respiratory failure Acute
[2018-07-03] MEDS: D5W NS 1,000 ML IV SCH (13:45)
[2018-07-03] MEDS: HEPARIN 5,000 UNIT/0.5 ML INJ SC SCH ×2 (13:52→22:28)
[2018-07-03] MEDS: INSULIN GLARGINE 100 UNITS/ML UNIT SC SCH (14:28)
--- NOTE | 2018-07-03 16:30 | GCON ---
[f rep st] CONSULTATION PULMONARY CRITICAL CARE CONSULTATION DATE OF CONSULTATION: 07/03/2018 REASON FOR CONSULTATION: Diabetic ketoacidosis, acute respiratory failure, right lower lobe pneumoni a. HISTORY: The patient is a 72-year-old type 1 diabetic. She could not be contacted mid day yesterday and a friend went over and found her unresponsive in her bed. Paramedics were called. They empiric ally gave her D50. She was brought to the emergency department where blood sugar was markedly elevat ed and she was found to be in DKA. She has had a history of this several times in the past. She was eventually intubated in the emergency department secondary to the inability to protect her airway. Admission chest x-ray did show a new right lower lobe infiltrate and an effusion, which has increased on followup x-ray and was seen on abdominal CT scan. The latter was otherwise negative. She was treated with an insulin drip overnight. Blood sugars remain significantly elevated, however, anion gap has closed. PAST MEDICAL HISTORY: Remarkable for type 1 diabetes. In 2017, BUN and creatinine were normal. The re is a history of systemic hypertension and possible TIA or CVA in the past. Other medical problems include hypothyroidism and depression. MEDICATIONS ON ADMISSION: 1. Insulin. 2. Amlodipine. 3. Synthroid. 4. Wellbutrin. 5. Cozaar. 6. Atorvastatin. 7. Hydralazine. Insulin includes Lantus which she apparently takes on a variable dose and sliding scale regular insul in. DRUG ALLERGIES: Nonsteroidal anti-inflammatories, oral pain medications, unsure of which ones, and i ntravenous renal contrast. SOCIAL HISTORY: The patient lives alone. She has no immediate family here. Her neighbors are her " family," look after her and check in on her. Alcohol and tobacco are negative. Sisters live on the [facility]. She reportedly has been in the [facility] for about 18 years following alf else where. FAMILY HISTORY: Unobtainable. REVIEW OF SYSTEMS: Unobtainable. PHYSICAL EXAMINATION: GENERAL: Reveals an elderly woman who appears comfortable, on the ventilator. She is starting to respond, tries to open her eyes to stimulation and voice. She is sedated, on th e ventilator. VITAL SIGNS: Blood pressure is 110/50, heart rate 90 with sinus rhythm on the monitor . FiO2 is 40%, saturations of 99%. She is afebrile. Respiratory rate is 20. HEENT: Remarkable fo r endotracheal tube and orogastric tube being in place. Pupils appear equal. NECK: There is no jug ular venous distention, lymphadenopathy, or thyromegaly. There is a right triple-lumen catheter in t he IJ. CHEST: Clear bilaterally. Breath sounds are diminished at the bases. HEART: Regular in ra te and rhythm. There is a soft systolic murmur, no gallop. ABDOMEN: Soft and nontender. Bowel milka nds are present but diminished. : A Guillermo catheter is in place. She is making urine. Input is s ignificantly greater than output since admission: 8 L in, approximately 900 mL out. NEUROLOGIC: No nfocal. She moves all extremities to stimulation. She currently will not respond to commands. She does try to open her eyes to stimulation. DATABASE: Chest x-ray and CT scan show a right basilar infiltrate with a small associated pleural ef fusion. Arterial blood gas shows a pH of 7.45, pCO2 26, and PO2 104 on 40% FiO2, a rate of 14 and ti candis [place] 400[place] [address], hematocrit 31 down from 36 on admission. Platel ets are normal. Current laboratory shows a sodium of 135, potassium 3.9, CO2 19, anion gap of 10, BU N 53, and creatinine of 3.1. In 2017 when seen in the emergency department BUN was 12 with a creatin ine of 0.9. Calcium is 7.5. Beta hydroxybutyrate, 2.2 last night, is now normal at 0.11. Liver fun ction studies were mildly elevated on admission with an AST of 83 and an ALT of 54. Initial beta hyd roxybutyrate was 11. Initial blood glucose was 1350. ASSESSMENT: 1. Diabetic ketoacidosis: Resolving. Glucoses do remain elevated. Acidosis has resolved and anion gap has cleared. 2. Right lower lobe pneumonia. This presumably is 1 of the etiologies for her episode of diabetic k etoacidosis. She is being treated with azithromycin and ceftriaxone along with albuterol per the neville tilator. 3. Prophylaxis: On enoxaparin and famotidine. 4. Metabolic: Electrolytes are being followed. She is on the potassium protocol. 5. History of hypertension, hypothyroidism, etc. As outlined in the HPI. Home medications are curr ently on hold. PLAN AND RECOMMENDATIONS: Ventilatory support will be maintained for now. Sedation will be weaned. If appropriate, CPAP weans will be initiated and she will be assessed for extubation. Insulin drip will be continued for now. She can be transitioned to long-acting and sliding scale insulin as her h yperglycemia clears. Chest x-ray, blood gas, electrolytes and laboratory will all be followed. Bloo d cultures will be awaited. A sputum culture will be obtained. Further plans and recommendations will be made based on her progress over the next 12 to 24 hours. /[id number]/MODL
[2018-07-03] MEDS ORDERED: INSULIN LISPRO 100 UNIT/ML SC SCH (18:00)
[2018-07-03] MEDS: INSULIN REGULAR HUMAN 100 UNIT/ML UNIT SC SCH ×2 (18:06→21:43)
[2018-07-03] MEDS: FAMOTIDINE 20 MG/NACL 50 ML IV SCH (20:52)
[2018-07-04] MEDS: INSULIN REGULAR HUMAN 100 UNIT/ML UNIT SC SCH ×5 (02:42→17:08)
[2018-07-04] MEDS: ALBUTEROL 60 PUFFS/8 GM MDI IH SCH ×3 (04:03→12:24)
[2018-07-04 05:33] LABS: PLATELET COUNT 158 10^3/uL (150-400)
[2018-07-04] MEDS: HEPARIN 5,000 UNIT/0.5 ML INJ SC SCH ×3 (06:02→21:33)
[2018-07-04] MEDS: D5W NS 1,000 ML IV SCH ×2 (06:03→15:33)
[2018-07-04] MEDS: CHLORHEXIDINE GLUCONATE 15 ML UDL PO SCH ×2 (08:41→21:32)
--- NOTE | 2018-07-04 09:07 | PDINTPN ---
[employer] Progress Note Assessment/Plan: Assessment/plan: * Severe diabetic ketoacidosis-blood sugars are markedly improved -continue current treatment * Aspiration pneumonia-unclear improved -continue current antibiotics * Acute hypoxemic respiratory failure secondary to above-stable on mechanical ventilation -weaning parameters and CPAP trial today -anticipate extubation later on today * Hypertension * Hypothyroidism * Encephalopathy-appears to be resolved. * History of depression * History of CVA in the past * VTE prophylaxis * Stress ulcer prophylaxis * Nutrition-on hold Subjective: Awake and alert on mechanical ventilation. Following commands. Objective: Vital Signs Temp Pulse Resp BP Pulse Ox 37.4 C 90 20 150/75 H 99 07/04/18 07:00 07/04/18 07:00 07/04/18 07:00 07/04/18 07:00 07/04/18 07:00 Microbiology 07/03/18 13:48 - Final Sputum, Induced/Suctioned Laboratory Results 07/04/18 05:00 07/04/18 05:00 07/03/18 07/04/18 07/05/18 05:59 05:59 05:59 Intake Total 4789 Output Total 1000 Balance 3789 Laboratory Results 07/04/18 05:00 07/04/18 05:00 07/04/18 08:50 Patient Temperature 37.2 DEGREES DEGREES pCO2 29 mmHg L mmHg (34 - 38) pO2 119 mmHg H mmHg (65 - 75) Total CO2 19 mEq/L L mEq/L (23 - 27) ABG pH 7.41 (7.35 - 7.45) ABG PO2/FiO2 Ratio 298 RATIO RATIO ABG HCO3 18 mEq/L L mEq/L (22 - 26) ABG O2 Saturation 98 % H % (92 - 95) ABG Base Excess -4.9 mEq/L L mEq/L (-2.5 - 2.5) O2 Concentration % 40 % % Actual Respiration Rate 15 End Tidal CO2 31 PEEP 5 Pressure Support 10 CPAP YES Chest [id number] by myself. Endotracheal tube in good position. Central line in good position. Right lower lobe infiltrate is present. - Time Spent With Patient Time Spent With Patient: 35 min of critical care time spent with patient Case discussed with Nursing and Respiratory therapy Physical Exam - Physical Exam General Appearance: alert, no apparent distress EENT: PERRL/EOMI, ET tube Neck: non-tender Respiratory: crackles (Right base), No respiratory distress, No wheezing Cardiac/Chest: normal peripheral pulses, regular rate, rhythm Peripheral Pulses: 2+: carotid (R), carotid (L), femoral (R), femoral (L), dorsalis-pedis (R), dorsalis-pedis (L) Abdomen: normal bowel sounds, non-tender, soft Pelvic Exam: deferred Skin: normal color, warm/dry Extremities: normal range of motion, non-tender, normal inspection, normal capillary refill Neuro/Psych: alert ICD10 Worksheet Patient Problems: Problems Problem Status Onset DKA, type 1 Acute Respiratory failure Acute
[2018-07-04] MEDS: AZITHROMYCIN IV 500 MG in NS 250 ML IV SCH (09:18)
[2018-07-04] MEDS: INSULIN GLARGINE 100 UNITS/ML UNIT SC SCH (09:21)
--- NOTE | 2018-07-04 10:02 | SOAPPROG ---
SOAP Progress Note Assessment/Plan: Assessment: 1. HyperK: due to cellular shifting from hyperglycemia/acidosis, rapidly resolved with insulin. 2. Met acidosis: DKA, resolved. 3. arf: vol deplete/hypotensive on presentation, creat initially slow to improve and likely had element of ischemic atn. Now decreasing with much improved uo. CT neg for obstruction. Anticipate ongoing resolution from this point barring unexpected complications. 4. Hyperphos: resolved. 5. Hypotension: resolved with vol resuscitation. Will sign off, please call with questions Plan: 07/03/18 12:44 07/04/18 10:00 07/04/18 10:02 Subjective: extubated, hemodynamically stable. Awake/alert but non-verbal. Objective: Vital Signs Temp Pulse Resp BP Pulse Ox 37.2 C 78 47 H 127/68 H 411 H 07/04/18 09:00 07/04/18 09:00 07/04/18 09:00 07/04/18 09:00 07/04/18 09:00 Microbiology 07/03/18 13:48 - Final Sputum, Induced/Suctioned Laboratory Results 07/04/18 05:00 07/04/18 05:00 07/03/18 07/04/18 07/05/18 05:59 05:59 05:59 Intake Total 4789 Output Total 1000 Balance 3789 Physical Exam - Physical Exam General Appearance: no apparent distress, other (frail) Respiratory: lungs clear (anteriorly) Cardiac/Chest: regular rate, rhythm Abdomen: non-tender, soft Extremities: pedal edema (trace) ICD10 Worksheet Patient Problems: Problems Problem Status Onset DKA, type 1 Acute Respiratory failure Acute
[2018-07-04] MEDS: ACETAMINOPHEN 325 MG TAB PO PRN (11:21)
[2018-07-04] MEDS ORDERED: MAGNESIUM HYDROXIDE 30 ML UDCUP PO PRN (14:46)
[2018-07-04] MEDS ORDERED: LACTULOSE 20 GM/30 ML UDCUP PO PRN (14:46)
[2018-07-04] MEDS ORDERED: POLYETHYLENE GLYCOL 3350 17 GM PKT PO PRN (14:46)
[2018-07-04] MEDS ORDERED: BISACODYL 10 MG SUPP PR PRN (14:46)
--- NOTE | 2018-07-04 15:00 | HOSPPROG ---
Hospitalist Progress Note Assessment/Plan: 72 year old female admitted with DKA. #DKA, resolved. transitioned to lantus 10 daily with SSI. sugars acceptable. Will need to adjust as she starts taking more po. #Metabolic, acidosis- resolved with treatment of underlying dka. #Hyperkalemia, resolved #DM-I- restarted on lantus yesterday. she takes a sliding scale of lantus. started on 10 of lantus and SSI lispro. Will adjust PRN #Acute Encephalopathy, metabolic, seems to be improving. extubated today. #Aspiration vs CAP, right sided, right basilar consolidation- started on rocephin and azithro, then flagyl added for aspiration. Will change to unasyn for more focused coverage. #Hypotension-resolved. #Acute Respiratory Failure- was intubated. extubated today and saturating well on room air. #TOÑO, low urine output. Initial creatinine of 4, now down to 2.5 with fluids and pressure support. Cont fluids, and monitor renal function. Renal has signed off. Fluids- NS Lytes- WNL Nutrition- NPO until passes swallow Cor- Full Dispo- if doing okay transfer to floor. Subjective: throat hurts, feels very weak. Objective: Vital Signs Temp Pulse Resp BP Pulse Ox 37.4 C 88 20 128/69 H 95 07/04/18 11:00 07/04/18 13:00 07/04/18 12:00 07/04/18 13:00 07/04/18 13:00 Microbiology 07/03/18 13:48 - Final Sputum, Induced/Suctioned Laboratory Results 07/04/18 05:00 07/04/18 05:00 07/03/18 07/04/18 07/05/18 05:59 05:59 05:59 Intake Total 4789 Output Total 1000 1125 Balance 3789 -1125 - Physical Exam Constitutional: no apparent distress, appears nourished, not in pain Eyes: PERRL, anicteric sclera, EOMI Ears, Nose, Mouth, Throat: dry mucous membranes Cardiovascular: regular rate and rhythym, no murmur, rub, or gallop Respiratory: no respiratory distress, reduced air movement Gastrointestinal: soft, non-tender abdomen Genitourinary: no bladder fullness Skin: warm, normal color, no rashes or abrasions Musculoskeletal: generalized weakness Neurologic: weakness (oriented to place, and name. ) Psychiatric: encephalopathic ICD10 Worksheet Patient Problems: Problems Problem Status Onset DKA, type 1 Acute Respiratory failure Acute
--- NOTE | 2018-07-04 15:57 | ASMTCMCOM ---
CM Note CM Note Notes: Pt was extubated this morning. Various friends have been in to visit. Pt is alert, CM to follow-up with pt to complete MDPOA ppwk with pt if able. On pt's board she has various phone numbers of supports available: Pat:[phone] Nikole Sister:[phone] Roberto Brother: [phone] Minoo Friend: [phone] Sharon friend:[phone] Areli Friend:[phone] Earl friend: [phone] Plan:TBD Date Signed: 07/04/2018 03:56 PM Electronically Signed By:PETER Britton
[2018-07-04] MEDS: AMPICILLIN/SULBACTAM 3 GM in NS 100 ML IV SCH (17:06)
[2018-07-04] MEDS ORDERED: POTASSIUM Cl (KCl) 50 ML IV ONE (17:51)
[2018-07-04] MEDS ORDERED: AMPICILLIN/SULBACTAM 3 GM in NS 100 ML IV SCH (18:00)
--- NOTE | 2018-07-04 18:27 | WOCRNPDOC ---
WOCRN Advanced Assessment Note - Skin Integrity Problem, Advanced Assess Sacrum Pressure Injury Dressing Type: Open to Air Wound Bed Color: Purple, Red Site Measurement - Head-to-Toe Length X Width X Depth (cm): 3.5x11x0 Pressure Injury Stage: Deep Tissue Injury (DTI) Pressure Injury Present on Admit: Yes Skin Integrity Problem Comment: 9-3 oclock linear area of scattered reddened/ purplish areas of intact skin across sacrum. Multiple wounds in a row seperated by small areas of intact non erythematic skin. Area cleaned with gauze and ns looking for any open areas but didn't find any yet. Left open to air as patient had pure wick inplace that was leaking. RN's Gloria in room for care. Wound care will follow.
[2018-07-04] MEDS ORDERED: POTASSIUM Cl (KCl) 100 ML IV ONE (18:30)
[2018-07-04] MEDS: FAMOTIDINE 20 MG/NACL 50 ML IV SCH (21:33)
[2018-07-04] MEDS: SENNOSIDES/DOCUSATE SODIUM TAB PO SCH (21:34)
[2018-07-05] MEDS: INSULIN REGULAR HUMAN 100 UNIT/ML UNIT SC SCH ×7 (03:18→22:16)
[2018-07-05] MEDS: HEPARIN 5,000 UNIT/0.5 ML INJ SC SCH ×3 (06:07→21:42)
[2018-07-05] MEDS: AMPICILLIN/SULBACTAM 3 GM in NS 100 ML IV SCH ×3 (06:07→21:41)
[2018-07-05] MEDS: D5W NS 1,000 ML IV SCH (07:58)
[2018-07-05] MEDS: INSULIN GLARGINE 100 UNITS/ML UNIT SC SCH (08:54)
--- NOTE | 2018-07-05 08:57 | PDINTPN ---
Financial Compliance Manager Progress Note Assessment/Plan: Assessment/plan: * Severe diabetic ketoacidosis-blood sugars are markedly improved -continue current treatment * Aspiration pneumonia-unclear improved -continue current antibiotics * Acute hypoxemic respiratory failure secondary to above-stable off mechanical ventilation * Hypertension * Hypothyroidism * Encephalopathy-appears to be resolved. * History of depression * History of CVA in the past * VTE prophylaxis * Stress ulcer prophylaxis * Nutrition-on hold * Disposition-home soon Subjective: Sitting up in chair. Awake and alert. No current complaints. Objective: Vital Signs Temp Pulse Resp BP Pulse Ox 36.5 C 74 20 142/66 H 96 07/05/18 07:42 07/05/18 07:42 07/05/18 07:42 07/05/18 07:42 07/05/18 07:42 Microbiology 07/03/18 13:48 - Final Sputum, Induced/Suctioned Laboratory Results 07/04/18 05:00 07/05/18 06:15 07/04/18 07/05/18 07/06/18 05:59 05:59 05:59 Intake Total 4789 2480 Output Total 1000 2975 Balance 3789 -495 - Time Spent With Patient Time Spent With Patient: 25 min of time spent with patient, over 1/2 involved with coordination of care counseling. Case discussed with nursing Physical Exam - Physical Exam General Appearance: WD/WN, alert, no apparent distress EENT: PERRL/EOMI Neck: non-tender, supple Respiratory: crackles (Few basilar), No respiratory distress, No wheezing Cardiac/Chest: normal peripheral pulses, regular rate, rhythm Peripheral Pulses: 2+: carotid (R), carotid (L), femoral (R), femoral (L), dorsalis-pedis (R), dorsalis-pedis (L) Abdomen: normal bowel sounds, non-tender, soft Pelvic Exam: deferred Rectal: deferred Skin: normal color, warm/dry Extremities: normal range of motion, non-tender, normal inspection, normal capillary refill Neuro/Psych: alert, normal mood/affect, oriented x 3 ICD10 Worksheet Patient Problems: Problems Problem Status Onset DKA, type 1 Acute Respiratory failure Acute
[2018-07-05] MEDS: SENNOSIDES/DOCUSATE SODIUM TAB PO SCH ×2 (09:08→19:57)
[2018-07-05] MEDS: CHLORHEXIDINE GLUCONATE 15 ML UDL PO SCH (09:09)
[2018-07-05] MEDS ORDERED: POTASSIUM Cl (KCl) 50 ML IV ONE (09:55)
[2018-07-05] MEDS ORDERED: POTASSIUM Cl (KCl) 10 MEQ in NS 50 ML IV ONE (10:45)
[2018-07-05] MEDS ORDERED: POTASSIUM Cl (KCl) 20 MEQ in NS 50 ML IV ONE (10:45)
[2018-07-05] MEDS: LOSARTAN POTASSIUM 50 MG TAB PO SCH (11:43)
[2018-07-05] MEDS: amLODIPine BESYLATE 5 MG TAB PO SCH (11:43)
[2018-07-05] MEDS ORDERED: PROTOCOL POTASSIUM 1 DOSE MISC PRN (11:46)
--- NOTE | 2018-07-05 13:54 | HOSPPROG ---
Hospitalist Progress Note Assessment/Plan: 72 year old female admitted with DKA. #DKA, resolved. transitioned to lantus 10 daily with SSI. sugars acceptable. Will need to adjust as she starts taking more po. INTEL ANALYST saw today and cleared for regular diet. #Metabolic, acidosis- resolved with treatment of underlying dka. #Hyperkalemia, resolved #DM-I- restarted on lantus yesterday. she takes a sliding scale of lantus. started on 10 of lantus and SSI lispro. Will adjust PRN #Acute Encephalopathy, metabolic, seems to be improving. extubated yesterday and mentally cleared. #Aspiration vs CAP, right sided, right basilar consolidation- started on rocephin and azithro, then flagyl added for aspiration. Will change to unasyn for more focused coverage. -Discussed with pharmacy and will increase unasyn back to regular Q6 dosing as renal function improved. #Hypotension-resolved. #Acute Respiratory Failure- was intubated. extubated today and saturating well on room air. #TOÑO, low urine output. Initial creatinine of 4, now down to 21.3 with fluids and pressure support. Cont fluids, and monitor renal function. Renal has signed off. Fluids- NS, as PO intake increases stop IVF Lytes- WNL Nutrition- regular diet. Cor- Full Dispo-transfer to [facility], will likely need snf Subjective: doing much better today. wants to eat. throat no longer sore. Objective: Vital Signs Temp Pulse Resp BP Pulse Ox 36.5 C 76 18 125/65 H 95 07/05/18 07:42 07/05/18 11:41 07/05/18 11:41 07/05/18 11:41 07/05/18 11:41 Microbiology 07/03/18 13:48 - Final Sputum, Induced/Suctioned Laboratory Results 07/04/18 05:00 07/05/18 06:15 07/04/18 07/05/18 07/06/18 05:59 05:59 05:59 Intake Total 4789 2480 Output Total 1000 2556 379 Balance 1469 -706 -514 - Physical Exam Constitutional: no apparent distress, appears nourished, not in pain Eyes: PERRL, anicteric sclera, EOMI Ears, Nose, Mouth, Throat: moist mucous membranes, hearing normal, ears appear normal, no oral mucosal ulcers Cardiovascular: regular rate and rhythym, no murmur, rub, or gallop Respiratory: no respiratory distress, no rales or rhonchi, clear to auscultation Gastrointestinal: normoactive bowel sounds, soft, non-tender abdomen, no palpable masses Genitourinary: no bladder fullness, no bladder tenderness, no renal bruits Skin: no rashes or abrasions, no fluctuance, no induration Musculoskeletal: full muscle strength, no muscle tenderness, normal joint ROM Neurologic: AAOx3, sensation intact bilaterally Psychiatric: interacting appropriately, not anxious, not encephalopathic, thought process linear Lymph, Heme, Immunologic: no cervical LAD, no supraclavicular LAD ICD10 Worksheet Patient Problems: Problems Problem Status Onset DKA, type 1 Acute Respiratory failure Acute
--- NOTE | 2018-07-05 14:11 | ASMTCMCOM ---
CM Note CM Note Notes: Pt reports that she called her friend Rajan saying she wasn't feeling well and he refused to take her to the hospital. Pt's neighbor has been in to visit and reports that she has helped Arely to change the locks so he won't be able to interact with her for safety. At this time PT/OT are recommending SNF. CM met with pt and she is advocating for being able to go home with homecare and friends support. She says that she has people who are able to stay with her while she recovers. CM inititated referral to [facility]. Pt assigned her good friend Joanna Case as MDPOA, CM notified pt registration and number changed in chart. Plan: SNF Date Signed: 07/05/2018 02:10 PM Electronically Signed By:PETER Britton
[2018-07-05] MEDS: hydrALAZINE 10 MG TAB PO SCH ×2 (15:07→21:42)
[2018-07-05] MEDS: FAMOTIDINE 20 MG TAB PO SCH (21:42)
[2018-07-06] MEDS ORDERED: POTASSIUM CL 10 MEQ TAB PO ONE ×2 (00:59→08:08)
[2018-07-06] MEDS: AMPICILLIN/SULBACTAM 3 GM in NS 100 ML IV SCH ×4 (01:37→21:46)
[2018-07-06] MEDS: INSULIN REGULAR HUMAN 100 UNIT/ML UNIT SC SCH ×6 (02:48→21:45)
[2018-07-06] MEDS: HEPARIN 5,000 UNIT/0.5 ML INJ SC SCH ×3 (05:28→21:46)
[2018-07-06] MEDS: INSULIN GLARGINE 100 UNITS/ML UNIT SC SCH (08:44)
[2018-07-06] MEDS: amLODIPine BESYLATE 5 MG TAB PO SCH (08:47)
[2018-07-06] MEDS: hydrALAZINE 10 MG TAB PO SCH ×3 (08:47→21:47)
[2018-07-06] MEDS: LEVOTHYROXINE 100 MCG TAB PO SCH (08:47)
[2018-07-06] MEDS: LOSARTAN POTASSIUM 50 MG TAB PO SCH (08:47)
[2018-07-06] MEDS: SENNOSIDES/DOCUSATE SODIUM TAB PO SCH ×2 (09:12→23:42)
[2018-07-06] MEDS: FAMOTIDINE 20 MG TAB PO SCH (21:47)
[2018-07-07] MEDS: INSULIN REGULAR HUMAN 100 UNIT/ML UNIT SC SCH ×5 (02:13→17:56)
[2018-07-07] MEDS: AMPICILLIN/SULBACTAM 3 GM in NS 100 ML IV SCH ×4 (02:53→20:03)
[2018-07-07] MEDS: HEPARIN 5,000 UNIT/0.5 ML INJ SC SCH ×2 (05:21→15:18)
[2018-07-07] MEDS: amLODIPine BESYLATE 5 MG TAB PO SCH (09:27)
[2018-07-07] MEDS: LEVOTHYROXINE 100 MCG TAB PO SCH (09:27)
[2018-07-07] MEDS: hydrALAZINE 10 MG TAB PO SCH ×3 (09:27→22:03)
[2018-07-07] MEDS: LOSARTAN POTASSIUM 50 MG TAB PO SCH (09:27)
[2018-07-07] MEDS: INSULIN GLARGINE 100 UNITS/ML UNIT SC SCH (09:27)
[2018-07-07] MEDS: SENNOSIDES/DOCUSATE SODIUM TAB PO SCH ×2 (09:28→20:03)
[2018-07-07] MEDS ORDERED: POTASSIUM CL 10 MEQ TAB PO ONE ×2 (09:56→13:00)
--- NOTE | 2018-07-07 14:21 | HOSPPROG ---
Hospitalist Progress Note Assessment/Plan: Arely is a 72 y/o female who was admitted w DKA secondary to pna. During her stay, she required intubation and was extubated on 07/04. Her glucose have improved through out her stay. Main issue is weakness from being ill. *DKA -resolved/ she was treated with IV insulin + fluids -on sliding scale -increased Lantus yesterday to 15 units *PNA, concern for aspiration pna because she was unresponsive on admission -Unasyn- today is day #3 -Ceftriaxone and Azithromycin initially for 3 days *Metabolic, acidosis -resolved. *Hyperkalemia - resolved *acute on chronic renal fx -resolved *metabolic encephalopathy -resolved -due to acute illness *Sacral injury -wound care *hypotension -resolved *general weakness -PT and OT are both recommending SNF *Plan: spoke w [facility] admin person this afternoon, they are evaluating her for SNF but sounds unlikely; they will provide home care. Subjective: Arely is fatigued and worn out. Objective: Vital Signs Temp Pulse Resp BP Pulse Ox 36.6 C 78 16 136/77 H 93 07/07/18 08:00 07/07/18 08:00 07/07/18 08:00 07/07/18 09:27 07/07/18 08:00 Microbiology 07/03/18 13:48 - Final Sputum, Induced/Suctioned Sputum Culture - Final Laboratory Results 07/04/18 05:00 07/07/18 04:45 07/06/18 07/07/18 07/08/18 05:59 05:59 05:59 Intake Total 1298 540 Output Total 1325 Balance -27 540 - Physical Exam Constitutional: chronically ill appearing Eyes: PERRL Ears, Nose, Mouth, Throat: hearing normal Cardiovascular: regular rate and rhythym, systolic murmur Respiratory: no respiratory distress Gastrointestinal: normoactive bowel sounds Skin: warm Musculoskeletal: generalized weakness Neurologic: AAOx3 Psychiatric: interacting appropriately ICD10 Worksheet Patient Problems: Problems Problem Status Onset DKA, type 1 Acute Respiratory failure Acute
--- NOTE | 2018-07-07 15:44 | ASMTCMCOM ---
CM Note CM Note Notes: Pts case discussed w/ Monik Curry NP. [facility] has denied pt SNF admission. Monik will complete doc to doc. CM provided [facility]ja w/ Monik's cell. Monik has spoken to pt about going home w/ HH if [facility] doesn't approve SNF. Pt is amenable if she cannot go to SNF. Pt is able to have friends stay w/ her. Referral made to [facility] . Needs are TBD at this time. CM to follow. Plan: TBD Date Signed: 07/07/2018 03:43 PM Electronically Signed By:PETER Traore
[2018-07-07] MEDS: FAMOTIDINE 20 MG TAB PO SCH (20:03)
[2018-07-07] MEDS ORDERED: INSULIN REGULAR HUMAN 100 UNIT/ML UNIT SC SCH (21:00)
[2018-07-08] MEDS: AMPICILLIN/SULBACTAM 3 GM in NS 100 ML IV SCH ×3 (01:55→15:07)
[2018-07-08] MEDS: ACETAMINOPHEN 325 MG TAB PO PRN (03:42)
[2018-07-08 05:30] LABS: PLATELET COUNT 171 10^3/uL (150-400)
[2018-07-08] MEDS: LOSARTAN POTASSIUM 50 MG TAB PO SCH (08:13)
[2018-07-08] MEDS: hydrALAZINE 10 MG TAB PO SCH (08:13)
[2018-07-08] MEDS: LEVOTHYROXINE 100 MCG TAB PO SCH (08:13)
[2018-07-08] MEDS: amLODIPine BESYLATE 5 MG TAB PO SCH (08:14)
[2018-07-08] MEDS: INSULIN REGULAR HUMAN 100 UNIT/ML UNIT SC SCH ×2 (08:15→12:15)
[2018-07-08] MEDS: SENNOSIDES/DOCUSATE SODIUM TAB PO SCH (08:16)
[2018-07-08] MEDS: INSULIN GLARGINE 100 UNITS/ML UNIT SC SCH (08:17)
[2018-07-08] MEDS ORDERED: POTASSIUM CL 10 MEQ TAB PO ONE (08:45)
[2018-07-08] MEDS ORDERED: ENOXAPARIN 40 MG/0.4 ML SYR SC SCH (09:00)
[2018-07-08 12:30] VITALS: BP 117/60
--- NOTE | 2018-07-08 13:44 | HOSPPROG ---
Hospitalist Progress Note Assessment/Plan: Arely is a 72 y/o female who was admitted w DKA secondary to pna. During her stay, she required intubation and was extubated on 07/04. Her glucose have improved through out her stay. Main issue is weakness from being ill. *DKA -resolved/ she was treated with IV insulin + fluids -on sliding scale -increased Lantus to 15 units, glucose is improving *PNA, concern for aspiration pna because she was unresponsive on admission -Unasyn- today is day #3 -Ceftriaxone and Azithromycin initially for 3 days *Metabolic, acidosis -resolved. *Hyperkalemia - resolved *acute on chronic renal fx -resolved *metabolic encephalopathy -resolved -due to acute illness *Sacral injury -wound care *hypotension -resolved *general weakness -PT and OT are both recommending SNF *Plan: [facility] is evaluating her for SNF but sounds unlikely; she will likely need home health care. Likely will d/c soon. Subjective: no overnight events. no cp or sob. Objective: Vital Signs Temp Pulse Resp BP Pulse Ox 36.3 C 89 18 117/60 93 07/08/18 06:48 07/08/18 06:48 07/08/18 06:48 07/08/18 10:00 07/08/18 06:48 Microbiology 07/02/18 15:30 Blood Culture - Final Blood 07/02/18 15:35 Blood Culture - Final Blood Laboratory Results 07/08/18 05:15 07/08/18 05:15 07/07/18 07/08/18 07/09/18 05:59 05:59 05:59 Intake Total 540 1000 Balance 540 1000 - Physical Exam Constitutional: no apparent distress Eyes: PERRL Ears, Nose, Mouth, Throat: moist mucous membranes Cardiovascular: regular rate and rhythym, No edema Respiratory: no respiratory distress, no rales or rhonchi, clear to auscultation Gastrointestinal: normoactive bowel sounds Skin: warm Musculoskeletal: generalized weakness Neurologic: AAOx3 Psychiatric: interacting appropriately, not anxious, not encephalopathic Lymph, Heme, Immunologic: No petechiae ICD10 Worksheet Patient Problems: Problems Problem Status Onset DKA, type 1 Acute Respiratory failure Acute
--- NOTE | 2018-07-08 15:00 | PDDCSUM ---
Discharge Summary Discharge Summary: Arely is a 72 y/o female who was admitted w DKA secondary to pna. During her stay, she required intubation and was extubated on 07/04. Her glucose have improved through out her stay. Main issue is weakness from being ill at this time. She has been denies SNF by [facility]. She is being d/c to home with [facility]. Please see below for details per problem list. *DKA -resolved/ she was treated with IV insulin + fluids -on sliding scale -increased Lantus to 15 units, glucose is improving -cont with regimen *PNA, concern for aspiration pna because she was unresponsive on admission -stopped abx today *Metabolic, acidosis -resolved. *Hyperkalemia - resolved *acute on chronic renal fx -resolved *metabolic encephalopathy -resolved -due to acute illness *Sacral injury -wound care *hypotension -resolved *general weakness -PT and OT are both recommending SNF. She is being d/c with [facility] f/U: with [facility] next week Exam: see progress note from today Meds: see med rec total time spent on d/c is 35 mins
--- NOTE | 2018-07-08 15:01 | PDIAF ---
- Diagnosis Code Status: Full Code - Medication Management Discharge Medications: electronically signed and located in the Home Medication List. - Orders Services needed: Home Care, Registered Nurse, Physical Therapy, Occupational Therapy Home Care Face to Face: I certify that this patient was under my care and that I had the required [id number] encounter meeting the encounter requirements on the discharge day. My findings support the fact that the patient is homebound as defined in Home Care Face to Face Continued: CMS Chapter 7 Medicare Benefits Manual 30.1.1 , The condition of the patient is such that there exists a normal inability to leave home and consequently, leaving home would require a considerable and taxing effort. Isolation Type: None Diet Recommendation: ADA 1800 consistent carb Diet Texture: Regular Texture Diet, Thin Liquids, Meds Whole w/Liquids Additional Instructions: Activity: as tolerated please f/u with PCP next week - Follow Up Care Current Providers and Referrals: Patient,NotPresent [Primary Care Provider] - As per Instructions
--- NOTE | 2018-07-08 15:20 | ASMTLACE ---
LACE Length of stay for Answers: 4-6 days current admission Acuity / Level of Answers: Yes Care: Did the patient have an inpatient admission? Comorbidities - select Answers: Diabetes (uncontrolled or all that apply controlled) Mild liver or renal disease Other Notes: HTN # of Emergency department Answers: 1-2 visits in the last 6 months Score: 12 Date Signed: 07/08/2018 03:20 PM Electronically Signed By:PETER Traore
--- NOTE | 2018-07-08 15:26 | ASDISCHSUM ---
Discharge Information Plan Status:Home with Home Health Medically Cleared to Leave:07/08/2018 Discharge Date:07/08/2018 CM D/C Disposition: [facility] D/C Disposition:[id number] Projected Discharge Date:07/08/2018 11:00 AM Transportation at D/C: Discharge Delay Reason: Follow-Up Date:07/08/2018 11:00 AM Discharge Slot: Final Diagnosis: Placement Information Referral Type:*Halfway/SNF Referral ID:[id number] Provider Name: Address 1: Phone Number: Address 2: Fax Number: City: Selection Factors: State: Referral Type:*Home Health Care Services Referral ID:[id number] Provider Name:[facility] Address 1:[address] Address 2: City:[place] Selection Factors: State:[place] Patient Contact Information Contact Name:ABDELRAHMAN Relationship:Friend Address:[address] City:[place] Alternate Phone: State/Zip Code:[place] [address] Email: Financial Information Financial Class:Medicare Advantage Plans Primary Plan Desc:SIN MEDICARE ADV IP Primary Plan Number:[id number] Secondary Plan Desc: Secondary Plan Number: Assessment Information [facility] Progress Note CM Note Note Notes: Pt was brought in by EMS after being found unresponsive by her life partner, Rajan. MARCE called Rajan who was on his way to the hospital. He was informed of the pt's critical status (per Dr. Rodriguez).Rajan reported that he had text communication with the pt. the prior evening but became concerned when she did not respond to his text this morning. He went to her home and found her unresponsive and called 911. Upon arriving to the hospital Rajan questioned the pt's status saying "are you sure it is critical, the same exact thing has happened in the past". A neighbor was present in the room and repeatedly said she was "fine" it was just like last time. Dr. Rodriguez explained that the pt. was very ill and not breathing on her own. Rajan was recently in the hospital and has an ambulatory oxygen tank.He indicated he has had some health issues as well. Depending on pt. status pt. friends/family may benefit from some psychoeducation and additional support. DC needs TBD, CM to continue to follow. Date Signed: 07/02/2018 03:40 PM Electronically Signed By:Xiao Roth LCSW LACE LACE Length of stay for Answers: 4-6 days current admission Acuity / Level of Answers: Yes Care: Did the patient have an inpatient admission? Comorbidities - select Answers: Diabetes (uncontrolled or all that apply controlled) Mild liver or renal disease Other Notes: HTN # of Emergency department Answers: 1-2 visits in the last 6 months Score: 12 Date Signed: 07/08/2018 03:20 PM Electronically Signed By:PETER Traore [facility] Progress Note CM Note CM Note Notes: Pt was extubated this morning. Various friends have been in to visit. Pt is alert, CM to follow-up with pt to complete MDPOA ppwk with pt if able. On pt's board she has various phone numbers of supports available: Rajan:[phone] Nikole Sister:[phone] Roberto Brother: [phone] Minoo Friend: [phone] Sharon friend:[phone] Areli Friend:[phone] Earl friend: [phone] Plan:TBD Date Signed: 07/04/2018 03:56 PM Electronically Signed By:PETER Britton [facility] Progress Note CM Note CM Note Notes: Pt reports that she called her friend Rajan saying she wasn't feeling well and he refused to take her to the hospital. Pt's neighbor has been in to visit and reports that she has helped Arely to change the locks so he won't be able to interact with her for safety. At this time PT/OT are recommending SNF. CM met with pt and she is advocating for being able to go home with homecare and friends support. She says that she has people who are able to stay with her while she recovers. CM inititated referral to [facility]. Pt assigned her good friend Joanna Case as MDPOA, MARCE notified pt registration and number changed in chart. Plan: SNF Date Signed: 07/05/2018 02:10 PM Electronically Signed By:PETER Britton [facility] CM Progress Note CM Note [facility] Note Notes: Pts case discussed w/ Monik Curry NP. [facility] has denied pt SNF admission. Monik will complete doc to doc. CM provided [facility] w/ Monik's cell. Monik has spoken to pt about going home w/ HH if [facility] doesn't approve SNF. Pt is amenable if she cannot go to SNF. Pt is able to have friends stay w/ her. Referral made to [facility]. Needs are TBD at this time. CM to follow. Plan: TBD Date Signed: 07/07/2018 03:43 PM Electronically Signed By:PETER Traore Case Management Discharge Plan Note Case Management Discharge Discharge Order Complete? Answers: Yes Patient to Obtain Answers: via Family Medications Transportation Arranged Answers: Family/Friends EMTALA Complete Answers: No Case Management Transport Answers: No Form Complete Faxed Final Orders Answers: Yes Agency/Facility Transfer Answers: Yes Report Printed & Faxed to Receiving Agency Family Notified Answers: No Discharge Comments Notes: Pts case discussed w/ Dr. Norwood. [facility] has denied pt despite the doc to doc yesterday. [facility] requested new therapies notes from today. [facility] denied pt SNF rehab again. CM informed pt of this. Pt is okay w/ going home w/ HH. Pt reports that she has friends that can stay w/ her. Pts friend will be bringing her home. Referral sent to [facility]. [facility] is able to start pt tomorrow. DC orders sent. CM available for changes. Plan: [facility]; PT, OT, RN Date Signed: 07/08/2018 03:25 PM Electronically Signed By:PETER Traore Intervention Information Intervention Type:*IM-Signed Date of Service:07/08/2018 01:48 PM Patient Type:Inpatient Staff Member:Noreen Lombardo Hours: Discipline: Severity: Comment:
== END 2018-07-08 16:26 | disposition home health service (06) | DRG 637 ==
LOC: EDUNIT# → F2N 17:54 → F3E 07-05 15:40
PROVIDERS: ADMIT Student in an Organized Health Care Education/Training Program; ATTEND Family Medicine
PROC: 5A1945Z Respiratory Ventilation, 24-96 Consecutive Hours (ICD-10-PCS; principal; 2018-07-02)
PROC: 05H633Z Insertion of Infusion Device into Left Subclavian Vein, Percutaneous Approach (ICD-10-PCS; principal; 2018-07-02)
PROC: 0BH18EZ Insertion of Endotracheal Airway into Trachea, Via Natural or Artificial Opening Endoscopic (ICD-10-PCS; principal; 2018-07-02)
DX: E10.11 Type 1 diabetes mellitus with ketoacidosis with coma (principal); G93.41 Metabolic encephalopathy; J69.0 Pneumonitis due to inhalation of food and vomit; E87.5 Hyperkalemia; N17.9 Acute kidney failure, unspecified; J96.01 Acute respiratory failure with hypoxia; E10.22 Type 1 diabetes mellitus with diabetic chronic kidney disease; I12.9 Hypertensive chronic kidney disease with stage 1 through stage 4 chronic kidney disease, or unspecified chronic kidney disease; N18.9 Chronic kidney disease, unspecified; E03.9 Hypothyroidism, unspecified; Z79.4 Long term (current) use of insulin
CPT/HCPCS: 82435-PO; 82565-PO; 82947-PO; 82947-QW; 84132-PO; 84295-PO; 84520-PO; 85014-ER; 92507-GN; 92523-GN; 92526-GN; 92610-GN; 96365; 96366; 97116-GP; 97162-GP; 97165-GO; 97530-GO; 97530-GP; 97535-GO; J0295; J0456; J0610; J0696; J1644; J1650; J1815; J2250; J2704; J3480